=== PATIENT | male | born 1995 | race Caucasian/White ===

== ENCOUNTER 2017-04-27 19:24 | Emergency (ER) | payer OTHER ==
[~2017-04-27] VITALS: Ht 177.8 cm; Wt 86.4 kg
[2017-04-27] MEDS ORDERED: CEPH500 PO (19:53)
[2017-04-27 22:40] VITALS: BP 120/68
== END 2017-04-27 22:51 | disposition home or self-care (01) ==
LOC: EDBD 19:30 → EMS 19:30
DX: J18.9 Pneumonia, unspecified organism (principal)
CPT/HCPCS: 71020; 87430; 99285